=== PATIENT | female | born 2005 | race African-American/Black ===

== ENCOUNTER → 2024-03-10 | Outpatient (CLI) | payer OTHER, SELFPAY ==
--- NOTE | 2024-03-10 12:55 | ECHOD_ITS ---
Reason For Study: GONZALEZ Procedure This was a 2D Doppler, Color Flow transthoracic echocardiogram. Exam performed in department. Left Ventricle Normal LV size. Left ventricular systolic function is normal. The left ventricular ejection fraction is 65 %. Normal diastology for age. No regional wall motion abnormalities noted. Right Ventricle Normal right ventricle. Normal systolic function. Atria Normal left atrium. Normal right atrium. Mitral Valve Normal mitral valve. Tricuspid Valve Normal tricuspid valve. Aortic Valve Trisinus/trileaflet aortic valve. Pulmonic Valve Normal pulmonic valve. Great Vessels Normal aortic root. The pulmonary artery is normal size. Inferior vena cava collapse with sniff. Pericardium/Pleural No pericardial effusion. MMode/2D Measurements & Calculations LVIDd: 4.1 cm IVSd: 0.75 cm LVOT diam: 1.9 cm LVIDs: 2.6 cm LVPWd: 0.94 cm LVOT area: 2.8 cm2 RVDd: 3.9 cm FS: 37.5 % Ao root diam: 2.7 cm LAV(MOD-bp): 53.1 ml LVAd ap4: 26.7 cm2 LAV(MOD-bp) Indexed: 28.5 ml/m2 LVLd ap4: 8.0 cm LAV(MOD-sp2): 47.0 ml EDV(MOD-sp4): 75.8 ml LAV(MOD-sp4): 48.8 ml EDV(sp4-el): 75.7 ml LVAs ap4: 14.3 cm2 LVLs ap4: 6.4 cm ESV(MOD-sp4): 28.9 ml ESV(sp4-el): 27.2 ml EF(MOD-sp4): 61.8 % EF(sp4-el): 64.1 % SV(MOD-sp4): 46.9 ml SV(sp4-el): 48.5 ml LA A4 area: 19.2 cm2 LA dimension(2D): 3.3 cm RA A4 area: 11.8 cm2 TAPSE: 2.8 cm Time Measurements MV dec time: 0.14 sec Doppler Measurements & Calculations MV E max ras: 74.0 cm/sec Lat Peak E' Ras: 21.5 cm/sec Med Peak E' Ras: 16.0 cm/sec MV A max ras: 44.5 cm/sec E/E' lat: 3.4 E/E' med: 4.6 MV E/A: 1.7 MV V2 max: 81.3 cm/sec Ao V2 max: 118.2 cm/sec MV max P.6 mmHg MV dec slope: 535.9 cm/sec2 Ao max P.6 mmHg MV V2 mean: 46.7 cm/sec Ao V2 mean: 79.6 cm/sec MV mean P.1 mmHg Ao mean P.9 mmHg MV V2 VTI: 20.1 cm Ao V2 VTI: 23.1 cm AV (velocity ratio): 1.2 MVA(VTI): 3.8 cm2 BLANCHE(I,D): 3.3 cm2 BLANCHE(V,D): 2.8 cm2 LV V1 max: 120.6 cm/sec SV(LVOT): 77.0 ml PA V2 max: 98.0 cm/sec LV V1 max P.8 mmHg PA V2 mean: 69.7 cm/sec LV V1 mean P.3 mmHg LV V1 mean: 85.9 cm/sec LV V1 VTI: 27.7 cm ECHO/Echo Complete Interpretation Summary Normal LV size. Left ventricular systolic function is normal. The left ventricular ejection fraction is 65 %. Normal diastology for age. Structurally normal valves. Ordering Physician: Ash Sutton Referring Physician: Ash Sutton Performed By: Valentina Romo RCS
== END | disposition home or self-care (01) ==
PROVIDERS: Referring Provider Family Medicine; Visit Provider Family Medicine
DX: R06.09 Other forms of dyspnea (principal); R60.0 Localized edema
CPT/HCPCS: 93306